=== PATIENT | female | born 1990 | race Caucasian/White ===

== ENCOUNTER 2024-05-25 11:15 | Emergency (ER) | payer OTHER ==
[~2024-05-25] VITALS: Ht 162.6 cm; Wt 47.6 kg
[2024-05-25 11:26] VITALS: O2SAT 96
== END 2024-05-25 17:20 | disposition left against medical advice (07) ==
LOC: ER 11:15
DX: L98.8 Other specified disorders of the skin and subcutaneous tissue (principal); Z53.21 Procedure and treatment not carried out due to patient leaving prior to being seen by health care provider
CPT/HCPCS: A4606; A4663

== ENCOUNTER 2024-06-02 21:23 | Emergency (ER) | payer OTHER ==
[~2024-06-02] VITALS: Ht 162.6 cm; Wt 47.6 kg
[2024-06-02 22:00] VITALS: O2SAT 100
[2024-06-02] MEDS ORDERED: AMPH20CA3 PO (23:17)
[2024-06-02] MEDS ORDERED: CLON2TAB PO (23:17)
[2024-06-02] MEDS ORDERED: QUET100T PO (23:17)
== END 2024-06-02 23:28 | disposition home or self-care (01) ==
LOC: ER 21:23
DX: M54.30 Sciatica, unspecified side (principal); F90.9 Attention-deficit hyperactivity disorder, unspecified type; J45.909 Unspecified asthma, uncomplicated; Z76.0 Encounter for issue of repeat prescription
CPT/HCPCS: A4606; A4663